=== PATIENT | female | born 1985 | race Caucasian/White ===

== ENCOUNTER 2025-03-26 08:46 | Outpatient (CLI) | payer OTHER | END 2025-03-26 08:47 | disposition home or self-care (01) | LOC: CSHSLEEP 08:46 | PROVIDERS: ATTEND Internal Medicine | DX: G47.30 Sleep apnea, unspecified (principal); F41.9 Anxiety disorder, unspecified; F32.A Depression, unspecified | CPT/HCPCS: 95800 ==